=== PATIENT | male | born 1965 | race Caucasian/White ===

== ENCOUNTER 2016-09-28 09:08 | Outpatient (RCR) | payer BC | END 2016-12-03 | disposition home or self-care (01) | LOC: ONC 09:08 | PROVIDERS: ATTEND Internal Medicine Hematology & Oncology | DX: Z08 Encounter for follow-up examination after completed treatment for malignant neoplasm (principal); Z85.820 Personal history of malignant melanoma of skin | CPT/HCPCS: 99213 ==